=== PATIENT | female | born 1950 | race African-American/Black ===

== ENCOUNTER 2018-02-14 10:15 | Emergency (ER) | payer OTHER, MEDICARE ==
[~2018-02-14] VITALS: Ht 160 cm; Wt 70.3 kg
[~2018-02-14 10:15] MED LIST: FLONASE ALLERG9.9 ML NAS; FLONASE ALLERG9.9 ML PO; MAGIC MOUTHWASH PO
[2018-02-14] MEDS ORDERED: ANAGRELIDE HCL PO ×2 (11:48→11:49)
--- NOTE | 2018-02-14 11:48 | ED AMS/SEIZURE/WEAK/DIZZY ---
History of Present Illness General Chief Complaint: Dizziness Stated Complaint: FALL Source: patient Exam Limitations: POOR RECALL OF EVENT Vital Signs & Intake/Output Vital Signs & Intake/Output Vital Signs Date Time Temp Pulse Resp B/P B/P Pulse O2 O2 Flow FiO2 Mean Ox Delivery Rate 02/14 1429 98.6 94 19 152/74 98 Room Air 02/14 1221 98.0 90 20 149/76 98 Room Air 02/14 1206 78 161/77 02/14 1026 98.6 93 20 155/74 98 Room Air Allergies Coded Allergies: NO KNOWN ALLERGIES (01/05/12) Reconcile Medications Amlodipine Besylate 10 MG TABLET 1 TAB PO DAILY HEART (Reported) Anagrelide HCl 0.5 MG CAPSULE 2 CAP PO DAILY UNKNOWN (Reported) Anagrelide HCl 0.5 MG CAPSULE 1 CAP PO QPM UNKNOWN (Reported) Aspirin (Aspirin*) 81 MG TAB.CHEW 1 TAB PO DAILY HEART HEALTH (Reported) Calcium Carbonate/Vitamin D3 (Caltrate 600 + D Tablet) 600 MG-800 TABLET 1 TAB PO DAILY BONES (Reported) Ferrous Sulfate 325 MG (65 MG IRON) TABLET 1 TAB PO DAILY ANEMIA (Reported) Losartan Potassium 100 MG TABLET 1 TAB PO DAILY HEART (Reported) Multivit-Min/FA/Lycopen/Lutein (Centrum Silver Tablet) 0.4 MG-300 MCG-250 MCG TABLET 1 TAB PO DAILY VITAMIN SUPPORT (Reported) Triage Note: STATES SHE FELT DIZZY YESTERDAY WHILE SHE WAS BRAIDING HAIR AND FELL ONTO FLOOR FROM STANDING. STATES +LOC COUPLE SECONDS. PT DENIES BLOOD THINNERS, DENIES CP Triage Nurses Notes Reviewed? yes Onset: YESTEREDAY ABOUT 13:30 Duration: minute(s):, gone now Timing: single episode today Injury Environment: home Severity: severe HPI: Patient presents for evaluation of a fainting episode that occurred yesterday. Patient was standing in her grandchild's hair when the incident occurred. Patient felt lightheaded and attempted to get to her sofa to lie down but did not make it. One of the grandchildren noted some shaking of one of the patient' s arms during the incident. Patient denies room spinning prior to the fainting episode. Patient was unable to get to the emergency department until today. Patient denies prior syncopal episode she has had near syncopal episodes relatively frequently over the past few months. Patient states that the episodes are triggered by standing in one place for a long period of time. Patient denies headaches or visual changes or motor weakness or numbness or tingling. Past History Travel History Traveled to [place] past 21 day No Medical History Any Pertinent Medical History? see below for history Cardiovascular: hypertension Renal: chronic kidney disease Surgical History Surgical History: non-contributory Psychosocial History What is your primary language Upper Sorbian Tobacco Use: Never used ETOH Use: denies use Illicit Drug Use: denies illicit drug use Family History Hx Contributory? No Review of Systems Review of Systems Constitutional: Reports: no symptoms. EENTM: Reports: no symptoms. Respiratory: Reports: no symptoms. Cardiovascular: Reports: syncope. GI: Reports: no symptoms. Genitourinary: Reports: no symptoms. Musculoskeletal: Reports: no symptoms. Skin: Reports: no symptoms. Neurological/Psychological: Reports: no symptoms. Hematologic/Endocrine: Reports: no symptoms. Immunologic/Allergic: Reports: no symptoms. All Other Systems: Reviewed and Negative Physical Exam Physical Exam General Appearance: see below Comments: Gen.: Well-nourished, well-developed, no acute respiratory distress. Head: Normocephalic, atraumatic. Eyes: Normal inspection bilaterally Ears: Normal inspection bilaterally Nose: Normal inspection Throat/mouth : Moist mucosa Neck: Supple, full range of motion, no goiter Heart: Regular rate and rhythm, no murmurs rubs or gallops Lungs: Clear to auscultation bilaterally with normal air entry Chest: Nontender Back: Normal range of motion Abdomen: Soft, nontender, nondistended, normal bowel sounds Extremities: Normal range of motion grossly, equal radial pulses, no cyanosis clubbing or edema Neurologic: Cranial nerves 2 through 12 intact, speech is clear, gait stable Skin: warm and dry Psychiatric: Calm, cooperative, no apparent delusions or hallucinations Core Measures ACS in differential dx? No CVA/TIA Diagnosis No Sepsis Present: No Sepsis Focused Exam Completed? No Progress Differential Diagnosis: arrythmia, CVA/stroke, dehydration, electrolyte imbalance, GI bleed, hypoglycemia, hypoxia, intracranial Hem., intracranial mass /tumor, postural hypotension, seizure disorder Plan of Care: Orders Procedure Date/time Status TSH REFLEX 02/15 0600 Active Saline Lock 02/14 1147 Active MISTAKE 02/14 1147 Active Telemetry/Lathe Machine Operator 02/14 1147 Active TROPONIN LEVEL 02/14 1147 Complete COMPREHENSIVE METABOLIC PANEL 02/14 1147 Complete CBC WITHOUT DIFFERENTIAL 02/14 114 Complete EKG 02/14 1023 Active Current Medications Sig/Karina Start time Last Medication Dose Stop Time Status Admin Sodium Chloride 500 ML BOLUS ONE 02/14 1430 AC 02/14 (Normal Saline 0.9%) 02/14 1529 1433 Sodium Chloride 1,000 ML BOLUS ONE 02/14 1415 CAN (Normal Saline 0.9%) 02/14 1514 Laboratory Tests 02/14/18 1250: Anion Gap 11, Estimated GFR 35 L, BUN/Creatinine Ratio 17.3, Glucose 98, Calcium 9.5, Total Bilirubin 0.6, AST 27, ALT 45, Alkaline Phosphatase 127 H, Troponin I < 0.01, Total Protein 7.8, Albumin 4.2, Globulin 3.6, Albumin/ Globulin Ratio 1.2 02/14/18 1157: CBC w Diff NO MAN DIFF REQ, RBC 4.04 L, MCV 77.1 L, MCH 25.1 L, MCHC 32.6 L, RDW 24.4 H, MPV 8.6, Gran % 76.2 H, Lymphocytes % 16.3 L, Monocytes % 5.0, Eosinophils % 1.8, Basophils % 0.7, Absolute Granulocytes 6.5, Absolute Lymphocytes 1.4, Absolute Monocytes 0.4, Absolute Eosinophils 0.2, Absolute Basophils 0.1 Diagnostic Imaging: Discussed w/RAD: Radiology Read, CT Scan. Radiology Impression: PATIENT: JASMIN DARDEN PRESENT AGE: 67 PATIENT ACCOUNT NO: [id number] : 49 LOCATION: [facility] ORDERING PHYSICIAN: Ashish Lion MD SERVICE DATE: 02/14/18 EXAM TYPE: CAT - CT HEAD WO IV CONTRAST EXAMINATION: CT HEAD WITHOUT CONTRAST CLINICAL INFORMATION: Dizziness. Question cerebrovascular accident. COMPARISON: No relevant prior imaging. TECHNIQUE: Contiguous axial imaging was performed from the skull base to vertex without intravenous administration of contrast. DLP: 544.61 mGy-cm FINDINGS: There is no acute intracranial hemorrhage or abnormal extra-axial collection. No intracranial mass effect or midline shift. Lateral and third ventricles are normal. No hydrocephalus. A few ill-defined foci of hypoattenuation are visualized within the periatrial white matter that most likely represent a chronic manifestation of small vessel ischemia. Duarte-white matter differentiation is otherwise grossly preserved and there is no evidence of acute territorial infarct. The calvarium and skull base are intact. Mastoid air cells and middle ear cavities are well-aerated. Visualized paranasal sinuses are well aerated. IMPRESSION: There are a few scattered chronic small vessel ischemic changes within the periventricular white matter. No evidence of acute territorial infarct or hemorrhage. DICTATED BY: Jigar Rangel MD DATE/TIME DICTATED:02/14/181237 PRESSURE DISPATCHER:[place] DATE/TIME TRANSCRIBED:1237 CONFIDENTIAL, DO NOT COPY WITHOUT APPROPRIATE AUTHORIZATION. < Electronically signed in Other Vendor System> SIGNED BY: Jigar Rangel MD 02/14/18 1244 CXR Impression: PATIENT: JASMIN DARDEN PRESENT AGE: 67 PATIENT ACCOUNT NO: [id number] : 49 LOCATION: [facility] ORDERING PHYSICIAN: Ashish Lion MD SERVICE DATE: 02/14/18 EXAM TYPE: RAD - XRY-PORTABLE CHEST XRAY XR PORTABLE CHEST CLINICAL INFORMATION: Dizziness and syncope. COMPARISON: Chest x-ray 01/16/2009. TECHNIQUE: Portable frontal view of the chest was obtained. FINDINGS: Symmetric lung inflation. There is no focal consolidation, pleural effusion, or pneumothorax. Cardiac silhouette size at the upper limits of normal. There are no acute osseous findings. IMPRESSION: No acute pulmonary process. DICTATED BY: Ashish Rene MD DATE/TIME DICTATED:08/24 PRESSURE DISPATCHER:[place] DATE/TIME TRANSCRIBED:02/14/181301 CONFIDENTIAL, DO NOT COPY WITHOUT APPROPRIATE AUTHORIZATION. <Electronically signed in Other Vendor System> SIGNED BY: Ashish Rene MD 02/14/181307 Initial ED EKG: NSR, rate (91) Prior EKG: unchanged Comments: 02/14/2018 2:55:55 PM I updated Jasmin previously on test results and ordered 500 mL fluid bolus. The patient feels well currently and wishes to return home. Departure Departure Disposition: HOME OR SELF CARE Condition: Stable Clinical Impression Primary Impression: Dehydration Secondary Impressions: Syncope Qualifiers: Syncope type: unspecified Qualified Code: R55 - Syncope and collapse Referrals: Yeison Gordon MD (PCP/Family) Additional Instructions: Maintain a good fluid intake. Follow up with your primary care physician this week for reevaluation. Return if any concerns or sudden worsening. Thank you for choosing the [facility] for your care. It was a pleasure to serve you today. Ashish Lion M.D. [facility] Departure Forms: Customer Survey General Discharge Information
[2018-02-14] MEDS ORDERED: AMLODIPINE BESY10 M1 PO (11:49)
[2018-02-14] MEDS ORDERED: LOSARTAN POTAS100 M1 PO (11:49)
[2018-02-14] MEDS ORDERED: ASPIRIN81 M4 PO (11:50)
[2018-02-14] MEDS ORDERED: CENTRUM SILVER1 EAC3 PO (11:51)
[2018-02-14] MEDS ORDERED: FERROUS SULFAT325 M3 PO (11:51)
[2018-02-14] MEDS ORDERED: CALTRATE 600 +1 EACH PO (11:51)
[2018-02-14 12:06] LABS: ABSOLUTE BASOPHIL COUNT 0.1 /CUMM (0.0-0.2); ABSOLUTE EOSINOPHIL COUNT 0.2 /CUMM (0.0-0.7); ABSOLUTE GRANULOCYTE CT 6.5 /CUMM (1.4-6.5); ABSOLUTE LYMPH COUNT 1.4 /CUMM (1.2-3.4); ABSOLUTE MONOCYTE COUNT 0.4 /CUMM (0.10-0.60); BASOPHIL % 0.7 % (0.0-2.0); EOSINOPHIL % 1.8 % (0-5); HEMATOCRIT 31.1 % (37-47); MEAN CORPUSCULAR HGB 25.1 PG (27.0-31.0); MEAN CORPUSCULAR HGB CONC 32.6 G/DL (33.0-37.0); MEAN CORPUSCULAR VOLUME 77.1 FL (81.0-99.0); MEAN PLATELET VOLUME 8.6 FL (7.4-10.4); RBC DISTRIBUTION WIDTH 24.4 % (11.5-14.5); RED BLOOD CELL CT 4.04 /CUMM (4.20-5.40); WHITE BLOOD CELL COUNT 8.6 /CUMM (4.8-10.8)
[2018-02-14 12:22] LABS: GRANULOCYTE % 76.2 % (42.2-75.2); PLATELET COUNT 498 /CUMM (130-400)
--- NOTE | 2018-02-14 12:44 | CT SCAN REPORT ---
EXAMINATION: CT HEAD WITHOUT CONTRAST CLINICAL INFORMATION: Dizziness. Question cerebrovascular accident. COMPARISON: No relevant prior imaging. TECHNIQUE: Contiguous axial imaging was performed from the skull base to vertex without intravenous administration of contrast. DLP: 544.61 mGy-cm FINDINGS: There is no acute intracranial hemorrhage or abnormal extra-axial collection. No intracranial mass effect or midline shift. Lateral and third ventricles are normal. No hydrocephalus. A few ill-defined foci of hypoattenuation are visualized within the periatrial white matter that most likely represent a chronic manifestation of small vessel ischemia. Duarte-white matter differentiation is otherwise grossly preserved and there is no evidence of acute territorial infarct. The calvarium and skull base are intact. Mastoid air cells and middle ear cavities are well-aerated. Visualized paranasal sinuses are well aerated. IMPRESSION: There are a few scattered chronic small vessel ischemic changes within the periventricular white matter. No evidence of acute territorial infarct or hemorrhage.
--- NOTE | 2018-02-14 13:08 | RADIOLOGY REPORT ---
XR PORTABLE CHEST CLINICAL INFORMATION: Dizziness and syncope. COMPARISON: Chest x-ray 01/16/2009. TECHNIQUE: Portable frontal view of the chest was obtained. FINDINGS: Symmetric lung inflation. There is no focal consolidation, pleural effusion, or pneumothorax. Cardiac silhouette size at the upper limits of normal. There are no acute osseous findings. IMPRESSION: No acute pulmonary process.
[2018-02-14 14:29] VITALS: BP 152/74
== END 2018-02-14 15:06 ==
LOC: ERH 10:15
PROVIDERS: Emergency Medicine
DX: E86.0 Dehydration (principal); R55 Syncope and collapse
CPT/HCPCS: 71045; 93005; 93010; J7040